=== PATIENT | male | born 1930 | race African-American/Black ===

== ENCOUNTER 2017-05-29 21:19 | Emergency (ER) | payer MEDICARE, OTHER ==
[~2017-05-29] VITALS: Ht 175.3 cm; Wt 68.0 kg
[2017-05-29 21:30] VITALS: BP 132/67
--- NOTE | 2017-05-29 21:53 | Emergency Room Report ---
History of Present Illness General Chief Complaint: Chest Pain Source: Patient, EMS Present Illness HPI 87-year-old male with pmhx of HTN, DM, pacemaker, valve replacement(unknown if mitral or aortic) p/w chest pain for less than 10 minutes. Chest pain started while patient was working on his computer. Localized to substernal area, no radiation to back or other areas, sharp in nature, gradual in onset, lasted less than 10 min, only one episodes. Occurred on rest. Denies SOB. Denies palpitations, diaphoresis, n/v. Denies fever, chills, cough, abd pain. Denies trauma. Last cardiac catheterization was within the last 6 months, patient did not require any stents Patient given 325 aspirin by EMS Allergies: Coded Allergies: PENICILLINS (Unverified Allergy, Unknown, 05/29/17) Patient History Past Medical History: see triage record Past Surgical History: none Pertinent Family History: none Reviewed Nursing Documentation: PMH: Agreed, PSxH: Agreed Review of Systems All Other Systems: negative except mentioned in HPI Physical Exam Vital Signs Date Time Temp Pulse Resp B/P (MAP) Pulse Ox O2 Delivery O2 Flow Rate FiO2 05/29/17 21:13 98.4 85 20 137/69 99 Room Air Sp02 EP Interpretation: reviewed, normal General Appearance: normal inspection, well appearing, no apparent distress, alert, GCS 15, non-toxic Head: normocephalic, atraumatic Eyes: bilateral eye normal inspection, bilateral eye PERRL, bilateral eye EOMI ENT: normal ENT inspection, normal pharynx, normal voice, moist mucus membranes Neck: normal inspection, full range of motion, supple Respiratory: normal inspection, lungs clear, normal breath sounds, no respiratory distress, no retraction, no wheezing, speaking full sentences, chest symmetrical Cardiovascular #1: normal inspection, regular rate, rhythm, no edema, normal capillary refill, other - Pacemaker noted in left-sided chest Cardiovascular #2: 2+ radial (R), 2+ radial (L) Gastrointestinal: normal inspection, non tender, soft, non-distended, no guarding Genitourinary: no CVA tenderness Musculoskeletal: normal inspection, back normal, normal range of motion, non- tender Neurologic: normal inspection, alert, oriented x3, responsive, motor strength/ tone normal, sensory intact, normal gait, speech normal Psychiatric: normal inspection, judgement/insight normal, memory normal Skin: normal inspection, normal color, no rash, warm/dry, well hydrated, normal turgor Medical Decision Making Diagnostic Impression: Primary Impression: Acute coronary syndrome ER Course 87-year-old male with pmhx of hypertension, diabetes, pacemaker, valve repair p/ w CP DDX: ACS vs. CHF vs. pneumonia vs. gastritis/GERD vs. pneumothorax Versus musculoskeletal Plan: IV access, obtain labs including troponin, EKG, CXR ASPIRIN ALREADY GIVEN BY EMS, PATIENT DID NOT REQUIRE ANY PAIN MEDS AT THIS TIME BECAUSE HIS CHEST PAIN FREE Anticipate admission ER course: Labs- Troponin neg Patient has remained on a monitor, HD stable continues to have intermittent CP Disposition: Patient requires admission for chest pain. Due to patient's history and comorbidities, patient has increased risk of acute cardiac event. Patient requires admission for further workup, serial troponin, and possible stress test/cath inpatient. Patient will be transferred to outside hospital due to insurance purposes I endorsed to Dr. Rojas who has accepted patient for transfer Please note that this Emergency Department Report was dictated using [employer] teacher technology software, occasionally this can lead to erroneous entry secondary to interpretation by the dictation equipment. EKG Diagnostic Results EP Interpretation: Yes Rate: normal Rhythm: Atrial sensed ventricular paced ST Segments: Wide QRS due to paced rhythm, no ST elevation in leads with concordant QRS, no ST depression in leads V1 V2 or V3 ASA given to patient: Yes Rhythm Strip EP Interpretation: Yes Rate: 80 Rhythm: Paced rhythm Chest X-ray CXR: Ordered: Yes 1 view Indication: Chest pain EP interpretation: Yes Interpretation: Mild cardiomegaly, pacemaker noted left chest Impression: cardiomegaly Electronically signed by Elias Barrera MD Laboratory Tests Test 05/29/17 21:43 White Blood Count 7.6 K/UL (4.8-10.8) Red Blood Count 3.95 M/UL (4.70-6.10) L Hemoglobin 12.5 G/DL (14.2-18.0) L Hematocrit 39.0 % (42.0-52.0) L Mean Corpuscular Volume 99 FL (80-99) Mean Corpuscular Hemoglobin 31.6 PG (27.0-31.0) H Mean Corpuscular Hemoglobin Concent 32.0 G/DL (32.0-36.0) Red Cell Distribution Width 12.5 % (11.6-14.8) Platelet Count 138 K/UL (150-450) L Mean Platelet Volume 6.8 FL (6.5-10.1) Neutrophils (%) (Auto) 72.0 % (45.0-75.0) Lymphocytes (%) (Auto) 17.1 % (20.0-45.0) L Monocytes (%) (Auto) 7.4 % (1.0-10.0) Eosinophils (%) (Auto) 3.0 % (0.0-3.0) Basophils (%) (Auto) 0.5 % (0.0-2.0) Prothrombin Time 10.7 SEC (9.30-11.50) Prothrombin Time INR 1.0 (0.9-1.1) PTT 25 SEC (23-33) Sodium Level 137 MMOL/L (136-145) Potassium Level 4.2 MMOL/L (3.5-5.1) Chloride Level 102 MMOL/L (98-107) Carbon Dioxide Level 27 MMOL/L (21-32) Anion Gap 8 mmol/L (5-15) Blood Urea Nitrogen 29 mg/dL (7-18) H Creatinine 1.2 MG/DL (0.55-1.30) Estimate Glomerular Filtration Rate mL/min (>60) Glucose Level 200 MG/DL (74-106) H Calcium Level 9.3 MG/DL (8.5-10.1) Total Bilirubin 0.6 MG/DL (0.2-1.0) Aspartate Amino Transferase (AST) 14 U/L (15-37) L Alanine Aminotransferase (ALT) 22 U/L (12-78) Alkaline Phosphatase 52 U/L (46-116) Troponin I 0.012 ng/mL (0.000-0.056) Pro-B-Type Natriuretic Peptide 1333 pg/mL (0-125) H Total Protein 7.1 G/DL (6.4-8.2) Albumin 3.9 G/DL (3.4-5.0) Globulin 3.2 g/dL Albumin/Globulin Ratio 1.2 (1.0-2.7) Last Vital Signs Date Time Temp Pulse Resp B/P (MAP) Pulse Ox O2 Delivery O2 Flow Rate FiO2 05/29/17 21:13 98.4 85 20 137/69 99 Room Air Disposition: XFER SHT-TRM HOSP Condition: Serious RetinoElias M.D. May 29, 2017 21:53
[2017-05-29 22:14] LABS: BASOPHILS % (AUTO) 0.5 % (0.0-2.0); HEMOGLOBIN 12.5 G/DL (14.2-18.0); LYMPHOCYTES % (AUTO) 17.1 % (20.0-45.0); MEAN CORPUSCULAR VOLUME 99 FL (80-99); MONOCYTES % (AUTO) 7.4 % (1.0-10.0); PLATELET COUNT 138 K/UL (150-450); RED BLOOD COUNT 3.95 M/UL (4.70-6.10); RED CELL DISTRIBUTION WIDTH 12.5 % (11.6-14.8); WHITE BLOOD COUNT 7.6 K/UL (4.8-10.8)
[2017-05-29 22:30] VITALS: BP 134/70
[2017-05-29 22:39] LABS: ALANINE AMINOTRANSFERASE 22 U/L (12-78); ALBUMIN 3.9 G/DL (3.4-5.0); ALBUMIN/GLOBULIN RATIO 1.2 (1.0-2.7); ALKALINE PHOSPHATASE 52 U/L (46-116); ANION GAP 8 mmol/L (5-15); ASPARTATE AMINO TRANSFERASE 14 U/L (15-37); BILIRUBIN,TOTAL 0.6 MG/DL (0.2-1.0); BLOOD UREA NITROGEN 29 mg/dL (7-18); CALCIUM 9.3 MG/DL (8.5-10.1); CARBON DIOXIDE 27 MMOL/L (21-32); CHLORIDE 102 MMOL/L (98-107); CREATININE 1.2 MG/DL (0.55-1.30); POTASSIUM 4.2 MMOL/L (3.5-5.1); SODIUM 137 MMOL/L (136-145)
[2017-05-29 23:30] VITALS: BP 130/72
[2017-05-30 00:25] VITALS: BP 134/72
[2017-05-30 01:30] VITALS: BP 131/74
[2017-05-30 01:40] VITALS: BP 131/74
--- NOTE | 2017-05-30 09:07 | Diagnostic Imaging Report ---
Indication: PAIN Technique: XRAY CHEST 1 V Comparison:None Findings: The heart is normal in size. A pacemaker is present. There are sternal wires. Lungs are clear. No pleural fluid. The aorta is calcified. Impression: Evidence of previous surgery. Pacemaker. Atherosclerotic change. No acute abnormality.
--- NOTE | 2017-05-30 14:39 | Cardiology Report ---
APPROVED REPORT EKG Measurement Heart [id number] Sinus rhythm Ventricularpaced rhythm Electronic pacemaker.
--- NOTE | 2017-05-30 14:39 | Cardiology Report ---
APPROVED REPORT EKG Measurement Heart [id number] [place] 172P61 [id number] Sinus rhythm Ventricularpaced rhythm Electronic pacemaker.
--- NOTE | 2017-05-30 14:39 | Cardiology Report ---
APPROVED REPORT EKG Measurement Heart [id number] PA [id number] [id number] Sinus rhythm Ventricularpaced rhythm Electronic pacemaker.
== END 2017-05-30 01:40 | disposition short-term general hospital (02) ==
LOC: EDBD 21:19 → EMR 21:31
DX: I24.9 Acute ischemic heart disease, unspecified (principal); I10 Essential (primary) hypertension; E11.9 Type 2 diabetes mellitus without complications; Z88.0 Allergy status to penicillin; Z95.0 Presence of cardiac pacemaker; Z95.2 Presence of prosthetic heart valve
CPT/HCPCS: 36415; 71010; 80053; 83880; 84484; 85025; 85610; 85730; 93005; 99285

== ENCOUNTER 2018-01-16 08:10 | Emergency (ER) | payer MEDICARE ==
[~2018-01-16] VITALS: Ht 172.7 cm; Wt 74.8 kg
[2018-01-16] MEDS ORDERED: Meclizine 25mg tab ORAL ONE (08:15)
[2018-01-16 08:40] LABS: BASOPHILS % (AUTO) 0.7 % (0.0-2.0); EOSINOPHILS % (AUTO) 5.3 % (0.0-3.0); HEMATOCRIT 35.6 % (42.0-52.0); HEMOGLOBIN 11.6 G/DL (14.2-18.0); LYMPHOCYTES % (AUTO) 32.8 % (20.0-45.0); MEAN CORPUSCULAR VOLUME 95 FL (80-99); NEUTROPHILS % (AUTO) 52.2 % (45.0-75.0); PLATELET COUNT 128 K/UL (150-450); RED BLOOD COUNT 3.76 M/UL (4.70-6.10); RED CELL DISTRIBUTION WIDTH 12.7 % (11.6-14.8); WHITE BLOOD COUNT 5.4 K/UL (4.8-10.8)
--- NOTE | 2018-01-16 08:48 | Diagnostic Imaging Report ---
EXAM: CT Head Without Intravenous Contrast CLINICAL HISTORY: 87-year-old male with "pain". TECHNIQUE: Axial computed tomography images of the head/brain without intravenous contrast. Coronal reformatted images were created and reviewed. CTDI is 70.53 mGy and DLP is 1362 mGy-cm. One or more of the following dose reduction techniques were used: automated exposure control, adjustment of the mA and/or kV according to patient size, use of iterative reconstruction technique. COMPARISON: None. FINDINGS: Brain: No acute intracranial hemorrhage, obvious mass or mass effect. Mild to moderate atrophy. Minimal probable chronic small vessel ischemia. Ventricles: Unremarkable. Bones/joints: Moderate bilateral TMJ DJD, and mild chronic fragmentation of the left mandibular head. Soft tissues: Grossly unremarkable. Sinuses: Unremarkable as visualized. Mastoid air cells: Unremarkable as visualized. IMPRESSION: No acute abnormality identified to explain pain.
[2018-01-16] MEDS ORDERED: LOSARTAN POTASS25 MG ORAL (08:51)
[2018-01-16] MEDS ORDERED: METFORMIN HCL500 M1 ORAL (08:51)
[2018-01-16] MEDS ORDERED: CARVEDILOL3.125 MG ORAL (08:51)
[2018-01-16] MEDS ORDERED: GLIPIZIDE5 MG ORAL (08:51)
[2018-01-16] MEDS ORDERED: AMLODIPINE BES2.5 MG ORAL (08:51)
[2018-01-16 08:54] LABS: ANION GAP 9 mmol/L (5-15); BLOOD UREA NITROGEN 30 mg/dL (7-18); CALCIUM 9.4 MG/DL (8.5-10.1); CARBON DIOXIDE 27 MMOL/L (21-32); CHLORIDE 106 MMOL/L (98-107); CREATININE 1.2 MG/DL (0.55-1.30); SODIUM 142 MMOL/L (136-145)
[2018-01-16 09:09] LABS: ALANINE AMINOTRANSFERASE 25 U/L (12-78); ALBUMIN 3.8 G/DL (3.4-5.0); ALBUMIN/GLOBULIN RATIO 1.1 (1.0-2.7); ALKALINE PHOSPHATASE 44 U/L (46-116); ASPARTATE AMINO TRANSFERASE 11 U/L (15-37); BILIRUBIN,TOTAL 0.5 MG/DL (0.2-1.0)
[2018-01-16] MEDS ORDERED: Sodium Chloride 500ML 500 ML IV ONE (09:15)
--- NOTE | 2018-01-16 09:50 | Emergency Room Report ---
History of Present Illness General Chief Complaint: Vomiting Source: EMS Present Illness HPI Patient is an 87-year-old male brought in by EMS after increased generalized weakness as well as vomiting. Patient reports having increased dizziness sensation. He reports having some spinning. He noted feeling weak all over. 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 The patient denies any diarrhea. He reports having some vomiting after drinking some orange juice this morning. Patient is diabetic Allergies: Coded Allergies: PENICILLINS (Unverified Allergy, Unknown, 05/29/17) Patient History Past Medical History: see triage record Reviewed Nursing Documentation: PMH: Agreed; PSxH: Agreed Nursing Documentation-PMH Hx Hypertension: Yes Hx Diabetes: Yes Hx Cancer: Yes - Prostate CA Review of Systems All Other Systems: negative except mentioned in HPI Physical Exam Vital Signs Date Time Temp Pulse Resp B/P (MAP) Pulse Ox O2 Delivery O2 Flow Rate FiO2 01/16/18 07:59 97.5 83 18 180/90 99 Room Air 97.5 Sp02 EP Interpretation: reviewed, normal General Appearance: normal inspection, well appearing, no apparent distress, alert, GCS 15 Head: atraumatic ENT: normal ENT inspection, hearing grossly normal, normal voice Neck: normal inspection, full range of motion, supple, no bony tend Respiratory: normal inspection, lungs clear, normal breath sounds, no respiratory distress, no retraction, no wheezing Cardiovascular #1: regular rate, rhythm, no edema Gastrointestinal: normal inspection, normal bowel sounds, non tender, soft, no guarding, no hernia Genitourinary: no CVA tenderness Musculoskeletal: normal inspection, back normal, normal range of motion Neurologic: normal inspection, alert, oriented x3, responsive, chemical engineering teacher III-XII nml as tested, motor strength/tone normal, speech normal Psychiatric: normal inspection, judgement/insight normal, mood/affect normal Skin: normal inspection, normal color, no rash Medical Decision Making Diagnostic Impression: Primary Impression: Generalized weakness Additional Impressions: Vertigo Paced cardiac rhythm ER Course Patient presented for dizziness. Differential diagnosis included but not limited to urinary tract infection, anemia, arrhythmia, abdominal aortic aneurysm, CVA, subarachnoid hemorrhage, benign positional vertigo.Because of complexity of patient's case laboratory testing and imaging studies were ordered. The CT the head read by radiology showed atrophic changes without evident CVA. The patient was given IV Zofran as well as meclizine. The patient was noted to have some improvement. He is started on IV fluids. Laboratory testing was notable for some evidence of thrombocytopenia.The patient denies any pain or pressure. Patient was noted to have some improvement in dizziness however he continues to feel weak. The patient was discussed with Dr. Urr[facility] agreed to accept the patient as transfer. Labs Test 01/16/18 08:26 White Blood Count 5.4 K/UL (4.8-10.8) Red Blood Count 3.76 M/UL (4.70-6.10) Hemoglobin 11.6 G/DL (14.2-18.0) Hematocrit 35.6 % (42.0-52.0) Mean Corpuscular Volume 95 FL (80-99) Mean Corpuscular Hemoglobin 30.7 PG (27.0-31.0) Mean Corpuscular Hemoglobin Concent 32.4 G/DL (32.0-36.0) Red Cell Distribution Width 12.7 % (11.6-14.8) Platelet Count 128 K/UL (150-450) Mean Platelet Volume 6.6 FL (6.5-10.1) Neutrophils (%) (Auto) 52.2 % (45.0-75.0) Lymphocytes (%) (Auto) 32.8 % (20.0-45.0) Monocytes (%) (Auto) 9.0 % (1.0-10.0) Eosinophils (%) (Auto) 5.3 % (0.0-3.0) Basophils (%) (Auto) 0.7 % (0.0-2.0) Sodium Level 142 MMOL/L (136-145) Potassium Level 4.0 MMOL/L (3.5-5.1) Chloride Level 106 MMOL/L (98-107) Carbon Dioxide Level 27 MMOL/L (21-32) Anion Gap 9 mmol/L (5-15) Blood Urea Nitrogen 30 mg/dL (7-18) Creatinine 1.2 MG/DL (0.55-1.30) Estimat Glomerular Filtration Rate mL/min (>60) Glucose Level 144 MG/DL (74-106) Calcium Level 9.4 MG/DL (8.5-10.1) Total Bilirubin 0.5 MG/DL (0.2-1.0) Aspartate Amino Transf (AST/SGOT) 11 U/L (15-37) Alanine Aminotransferase (ALT/SGPT) 25 U/L (12-78) Alkaline Phosphatase 44 U/L (46-116) Troponin I 0.003 ng/mL (0.000-0.056) Total Protein 7.3 G/DL (6.4-8.2) Albumin 3.8 G/DL (3.4-5.0) Globulin 3.5 g/dL Albumin/Globulin Ratio 1.1 (1.0-2.7) Thyroid Stimulating Hormone (TSH) 2.031 uiU/mL (0.358-3.740) EKG Diagnostic Results Rate: normal Rhythm: NSR ST Segments: no acute changes Rhythm Strip Diag. Results EP Interpretation: yes Rhythm: no PVC's, no ectopy, other Last Vital Signs Date Time Temp Pulse Resp B/P (MAP) Pulse Ox O2 Delivery O2 Flow Rate FiO2 01/16/18 07:59 97.5 83 18 180/90 99 Room Air 97.5 Status: improved Disposition: XFER [facility]HT-TRM HOSP Condition: Serious Referrals: [facility]ERR[facility] (PCP) Seth Nunez MD Jan 16, 2018 09:50
[2018-01-16 10:00] VITALS: BP 121/58
[2018-01-16] MEDS ORDERED: D5 1/2NS w/KCl 20mEq 1,000 ML IV SCH (11:15)
[2018-01-16 12:20] VITALS: BP 121/58
== END 2018-01-16 12:21 | disposition short-term general hospital (02) ==
LOC: EDBD 08:10 → EMR 08:41
DX: R53.1 Weakness (principal); R42 Dizziness and giddiness; E11.9 Type 2 diabetes mellitus without complications; Z85.46 Personal history of malignant neoplasm of prostate
CPT/HCPCS: 36415; 70450; 80053; 84443; 84484; 85025; 93005; 96365; 96374; 96375; 99285; J2405; J7040